=== PATIENT | female | born 1985 | race Caucasian/White ===

== ENCOUNTER 2024-04-26 19:50 | Emergency (ER) | payer SELFPAY ==
[~2024-04-26] VITALS: Ht 162.6 cm; Wt 69.3 kg
[2024-04-26 20:26] VITALS: O2SAT 100
[2024-04-27 00:54] VITALS: BP 127/67; PULSE 72; RESP 16; TEMP 36.72516; O2SAT 98
== END 2024-04-27 00:56 | disposition home or self-care (01) ==
LOC: ER 19:50
DX: M79.671 Pain in right foot (principal); M79.604 Pain in right leg
CPT/HCPCS: 93971; 99284